=== PATIENT | male | born 1950 | race Caucasian/White ===

== ENCOUNTER 2022-12-13 18:56 | Emergency (ER) | payer MEDICARE, OTHER, SELFPAY ==
[2022-12-13 18:57] VITALS: BP 94/76; PULSE 93; RESP 16; TEMP 36.4; O2SAT 98; BMI 37.5
--- NOTE | 2022-12-13 19:49 | EX.ED.DYSGE1 ---
HPI History of Present Illness Chief Complaint: Syncope Informant: patient and spouse/S.O. Narrative Narrative: Patient presents after syncopal episode. He has had these multiple times before. He has had adjustments of his meds up and down. He states that there is a nurse present when this happened and she got his blood pressure to be something over 50. He states he was standing waiting to get some food. He just kind of fell down. He fell onto his knees and his hip/buttocks. He did not hit his head or fall down to his head. He was out for a brief moment and then came back around. He now feels fine. He is on Eliquis but again never hit his head. He states he did hit his right hip but it does not hurt and he can bear weight. He also had his knees but it does not hurt. He basically feels fine at this time. [facility] Medical History (Updated 12/14/22 @ 00:[address] Omar Marquez MD) Atrial fibrillation Hypertension Melanoma Allergy/AdvReac Type Severity Reaction Status Date / Time No Known Allergies Allergy Verified 12/13/22 19:00 Social History Smoking Status: Former smoker ROS ROS ED ROS Narrative A complete review of systems was performed and is negative except as documented in the history of present illness. Some specific details below. Constitutional: No recent fevers or chills. He felt fine prior to this. EYE: No discharge, visual complaints, or pain. No visual field cut. ENT: No difficulty swallowing. No swelling. No pain. No reflux symptoms. CV: He never felt any palpitations or chest pain and does not now. He does have a history of chronic A-fib. Respiratory: No cough or trouble breathing. No rib or chest pain. He never hit his chest. GI: No abdominal pain. No nausea vomiting diarrhea. No blood in stool. : No frequency dysuria or hematuria. Musculoskeletal: He states he has mild soreness to his right hip and knee but he states it is just a mild bruise and he knows it is not broken as he can bear weight and walk without any difficulty. Skin: No rash. Nondiaphoretic. Minimal abrasion right knee Neuro: No weakness or numbness. Endocrine: No polyuria or polydipsia. EXAM Physical Exam Narrative Exam Narrative: CONSTITUTIONAL: Patient is nontoxic in appearance. The patient looks comfortable. Work of breathing looks normal. Carries on normal conversation. HEENT: Mucous membranes moist. No sinus tenderness. No indication of pain with swallowing. No sign at all of contusions or abrasions or any indication that he hit his head. EYES: No conjunctival injection. No proptosis. NECK:No JVD. No stridor. CARDIOVASCULAR: Regular rate. Regular rhythm. No notable murmur. No JVD. RESPIRATORY: No respiratory distress. Breathing is unlabored. No wheezes. No rhonchi. No rales. No pain with a deep breath. No chest wall tenderness. GASTROINTESTINAL: Not distended. Bowel sounds are normal. No tenderness. No guarding. No rebound. No palpable mass. No bruit is heard. GENITOURINARY: No tenderness over the bladder. No CVA tenderness. MUSCULOSKELETAL: Really benign extremities. He has a minimal abrasion below the right knee but no contusion or swelling at this point. No effusion. No pain with hip or knee motion. Despite his Eliquis he is not having notable bruising. NEUROLOGICAL: Patient is alert and appropriate. No focal deficit noted. SKIN: No noted rashes. No diaphoresis. PSYCHIATRIC: Patient is calm. Mood is appropriate. Const Vital Signs: 12/13/22 18:57 12/13/22 20:19 12/13/22 21:09 Temperature 97.6 F L Temperature Source Temporal Pulse Rate 93 125 H Respiratory Rate 16 12 Respiratory Effort Normal Respiratory Pattern Normal Blood Pressure 94/76 107/67 Blood Pressure Mean 82 80 Pulse Ox 98 97 Oxygen Delivery Method Room Air Room Air 12/13/22 21:49 12/13/22 23:50 Temperature Temperature Source Pulse Rate 105 H 108 H Respiratory Rate 16 17 Respiratory Effort Respiratory Pattern Blood Pressure 129/89 H 143/83 H Blood Pressure Mean 102 103 Pulse Ox 95 95 Oxygen Delivery Method Room Air Room Air MDM MDM MDM Narrative Medical decision making narrative: Patient CBC is normal. Patient's electrolytes are normal other than potassium minimally low at 3.2 which is not likely the cause of his symptoms. BUN and creatinine were a little bit up but I do not have a baseline. He was given some IV fluids. Patient's troponin is negative. After I saw him his heart rate did go up. But it sounds like he might be due for some medications. I will give him a metoprolol. We did get him up to walk. He feels perfectly fine. There are times where his heart rates in the mid upper 90s. I have seen and go as high as 120. But he is asymptomatic and would like to go home. I think this is reasonable. Lab Data Attestation: I reviewed the patient's lab results. Labs: Laboratory Results - last 24 hr 12/13/22 12/13/22 20:15 20:45 WBC 9.9 RBC 5.39 Hgb 16.3 Hct 47.3 MCV 87.8 MCH 30.2 MCHC 34.5 RDW Std Deviation 43.1 RDW Coeff of Jennyfer 13.4 Plt Count 264 MPV 10.5 Immature Gran % (Auto) 0.300 Neut % (Auto) 68.2 Lymph % (Auto) 23.8 [place] % (Auto) 6.4 Eos % (Auto) 0.6 Baso % (Auto) 0.7 Absolute Neuts (auto) 6.8 Absolute Lymphs (auto) 2.36 Nucleated RBC % 0 Sodium 140 Potassium 3.2 L Chloride 107 Carbon Dioxide 25.0 Anion Gap 8 BUN 27 H Creatinine 2.03 H Estim Creat Clear Calc 34.52 Est GFR (MDRD) Af Amer 42 L Est GFR (MDRD) Non-Af 34 L BUN/Creatinine Ratio 13.3 Glucose 189 H Calcium 9.6 Troponin I High Sens 5 EKG Initial EKG: Comments: My independent interpretation of the patient's EKG done for syncope shows atrial fibrillation but it does show rapid response with a rate of 140. No ventricular ectopy. No acute ST elevation or depression. QRS duration is normal. QTc is long. This rate is faster than when I listen to the patient or when he checked in. We will give him some meds for this now. Discharge Plan Triage Chief Complaint: Syncope ED Provider: Omar Marquez Dx/Rx/DC Orders Clinical Impression: Creatinine elevation, Syncope Instructions: ED Fainting, Uncertain Cause Primary Care Provider: Riky Mcgrath Referrals: Riky Mcgrath MD [Primary Care Provider] - 3-5 Days NOT,DEFINED [Non-Staff] - Disposition Disposition: Home, Self Care
--- NOTE | 2022-12-13 20:01 | EKG12_ITS ---
Test Reason : SYNCOPE Blood Pressure : / mmHG Vent. Rate : 140 BPM Atrial Rate : 000 BPM P-R Int : 000 ms QRS Dur : 102 ms QT Int : 338 ms P-R-T Axes : 000 076 008 degrees QTc Int : 516 ms Atrial fibrillation with rapid ventricular response Nonspecific ST abnormality Abnormal ECG Confirmed by CLAUDETTE MAI, LISA ([id number]), digital editor GILL WILKINSON ([id number]) on 12/15/2022 12:42:13 PM Referred By: Confirmed By:LISA WILKINS MD
[2022-12-13 20:24] LABS: Absolute Lymphocyte Count 2.36 X10^3/uL (0.83-4.51); Absolute Neutrophil Count 6.8 X10^3/uL (2.0-7.7); Basophil# 0.07 X10^3/uL; Basophil% 0.7 % (0-1); Eosinophil# 0.06 X10^3/uL; Eosinophils% 0.6 % (0-5); Hematocrit 47.3 % (40-54); Hemoglobin 16.3 g/dL (13.0-16.5); Lymphocyte # 2.36 X10^3/ul (0.83-4.51); Lymphocyte % 23.8 % (19-41); Mean Corp Hgb Conc 34.5 g/dL (32-36); Mean Corpuscular Hgb 30.2 pg (27.0-32.0); Mean Corpuscular Volume 87.8 fL (80-94); Mean Platelet Vol. 10.5 fl (6.2-12.0); Monocyte# 0.63 X10^3/uL; Monocyte% 6.4 % (0-10); NRBC Flagged by Analyzer 0 % (0-5); Neutrophil # 6.75 X10^3/uL (2.7-7.7); Neutrophil % 68.2 % (47-70); Platelet Count 264 K/mm3 (150-450); RBC Distribution Width CV 13.4 % (11.6-14.6); RBC Distribution Width SD 43.1 fl (35.1-43.9); Red Blood Count 5.39 M/mm3 (4.6-6.2); White Blood Count 9.9 K/mm3 (4.4-11.0)
[2022-12-13 20:45] LABS: Anion Gap 8 (5-15); BUN 27 mg/dL (7-18); BUN/Creat Ratio 13.3 RATIO (10-20); Calcium,Total 9.6 mg/dL (8.5-10.1); Chloride 107 mmol/L (98-107); Creatinine, Serum 2.03 mg/dL (0.70-1.30); EST Glomerular Filtration Rate 34 mL/min (>60); Est Glom Filt Rate - Afr Amer 42 mL/min (>60); Estimated Creatinine Clearance 34.52 ml/min; Glucose 189 mg/dL (74-106); Potassium 3.2 mmol/L (3.5-5.1); Sodium Level 140 mmol/L (136-145)
[2022-12-13 21:09] VITALS: BP 107/67; PULSE 125; RESP 12; O2SAT 97
[2022-12-13 21:12] LABS: Troponin-I HS 5 pg/mL (3.0-78.0)
[2022-12-13] MEDS: Metoprolol Tartrate 5 MG/5 ML Vial IV (21:14)
[2022-12-13 21:49] VITALS: BP 129/89; PULSE 105; RESP 16; O2SAT 95
[2022-12-13 23:50] VITALS: BP 143/83; PULSE 108; RESP 17; O2SAT 95
[2022-12-14] MEDS: Metoprolol Tartrate 25 MG Tablet PO (00:32)
[2022-12-14 00:33] VITALS: BP 138/87; PULSE 115; RESP 17; O2SAT 98
== END 2022-12-14 00:34 | disposition home or self-care (01) ==
PROVIDERS: Emergency Provider Emergency Medicine; PCP Family Medicine; Visit Provider Emergency Medicine
DX: R79.89 Other specified abnormal findings of blood chemistry (principal); R55 Syncope and collapse; Z87.891 Personal history of nicotine dependence
CPT/HCPCS: 80048; 84484; 85025; 93005; 96361; 96374; 99285; J7030; J7040; A4216